=== PATIENT | female | born 1980 | race Caucasian/White ===

== ENCOUNTER 2016-08-23 08:37 | Outpatient (CLI) | payer BC ==
--- NOTE | 2016-08-23 10:03 | Diagnostic Imaging Report ---
[facility] [id number] [facility].[address] [address] Report Submission Date: August 23, 2016 10:01:21 AM CDT Patient Study Name: HENRI ZHOU Date: August 23, 2016 8:53:01 AM CDT Modality Type: MR Gender: F Description: MRI BRAIN W&W/O CONTRAST : 84 Institution: [facility] Physician: JAZ PIÑA Magnetic resonance imaging of the brain without and with contrast History: Syncope and oral paresthesias with dizziness for 3 weeks Findings: Multiplanar magnetic resonance imaging of the brain was performed without and with 10 mL intravenous omniscan. No comparisons are available. The pituitary is normal in size. Mastoid air cells and sinuses exhibit normal signal voids. Ventricles and sulci are normal in size. Lopez white differentiation is intact. A few scattered foci of white matter T2 hyperintensity are observed in bilateral frontal and right parietal lobes. There is no intracranial hemorrhage , mass, fluid collection, restricted diffusion, orvabnormal contrast enhancement. Impression: Few scattered foci of bilateral cerebral white matter T2 hyperintensity are observed. The differential includes nonspecific gliosis, chronic small vessel ischemic gliosis, and less likely demyelinating disease. Electronically signed on August 23, 2016 10:01:21 AM CDT by: Michele ALSTON
== END 2016-08-23 08:45 | disposition home or self-care (01) ==
LOC: RAD 08:37
DX: R55 Syncope and collapse (principal)
CPT/HCPCS: 70553